=== PATIENT | male | born 1955 | race Hispanic/Latino ===

== ENCOUNTER 2021-08-10 12:20 | Outpatient (CLI) | payer OTHER ==
[2021-08-10 13:50] LABS: Hematocrit 50.1 % (35.5-45.6); Mean Corpuscular HGB Conc 34 % (32-34); Mean Corpuscular Volume 92 fl (84-94); Platelet Count 260 K/mm3 (140-440); Red Blood Count 5.46 M/mm3 (3.65-5.03); Red Cell Distribution Width 13.2 % (13.2-15.2)
[2021-08-10 14:07] LABS: Blood Urea Nitrogen 10 mg/dL (9-20); Calcium 10.2 mg/dL (8.4-10.2); Hemolysis Index 8
[2021-08-10 14:19] LABS: BUN/Creatinine Ratio 14
--- NOTE | 2021-08-11 08:58 | Electrocardiograph Report ---
[facility] Test Date: 2021-08-10 Test Time: 13:44:50 Pat Name: JERONIMO MEADE Department: Room: Gender: M [employer]: JOVON : 1955 Requested By: DEVIN LARA Order Number: [id number] Reading MD: Eusebio Sinha Measurements Intervals [place] Rate: 63 P: 68 KS: 131 QRS: 27 QRSD: 96 T: 72 QT: 396 QTc: 406 Interpretive Statements Sinus rhythm No previous ECG available for comparison Electronically Signed On 08-11-2021 8:58:12 EST by Eusebio Sinha
== END 2021-08-10 12:21 | disposition home or self-care (01) ==
LOC: LAB 12:20
PROVIDERS: ATTEND Surgery
DX: K40.90 Unilateral inguinal hernia, without obstruction or gangrene, not specified as recurrent (principal); F17.210 Nicotine dependence, cigarettes, uncomplicated; Z79.899 Other long term (current) drug therapy
CPT/HCPCS: 36415; 80048; 85027; 93005; 93010

== ENCOUNTER 2021-08-20 11:06 | Day surgery (SDC) | payer MEDICARE, OTHER ==
[~2021-08-20 11:06] MED LIST: ACETAMINOPHEN 500 MG TAB PO SCH; CELECOXIB 200 MG CAP PO NR; GABAPENTIN 300 MG CAP PO NR; LACTATED RINGERS 1,000 ML IV SCH; MIDAZOLAM 2 MG/2 ML INJ IV NR
[2021-08-20] MEDS ORDERED: ceFAZolin/Water 2 GM/20 ML 2 GM/20 ML SYRINGE IV ONE ×2 (12:30→12:31)
[2021-08-20] MEDS ORDERED: HEPARIN 5,000 UNIT/1 ML VIAL SUB-Q NR (12:30)
[2021-08-20] MEDS ORDERED: HEPARIN 5,000 UNIT/1 ML VIAL ONE (12:31)
--- NOTE | 2021-08-20 12:43 | Anesthesia Consultation ---
Anesthesia Consult and Med Hx Date of service: 08/20/21 - Airway Anesthetic Teeth Evaluation: Good ROM Head & Neck: Adequate Mental/Hyoid Distance: Adequate Mallampati Class: Class III Intubation Access Assessment: Possibly Difficult - Pre-Operative Health Status ASA Pre-Surgery Classification: ASA2 Proposed Anesthetic Plan: General - Pulmonary Hx Smoking: Yes (1PPD) Hx Respiratory Symptoms: No - Cardiovascular System Hx Hypertension: No Hx Heart Attack/AMI: No - Central Nervous System CVA: No - Endocrine Hx Renal Disease: No Hx Liver Disease: No Hx Insulin Dependent Diabetes: No Hx Non-Insulin Dependent Diabetes: No Hx Thyroid Disease: No - Other Systems Hx Obesity: No - Additional Comments Anesthesia Medical History Comments: No hx anesthetic complications.
[2021-08-20] MEDS ORDERED: oxyCODONE /ACETAMINOPHEN 5-325MG TAB PO PRN (12:44)
[2021-08-20] MEDS ORDERED: HYDROmorphone 1 MG/1 ML INJ IV PRN (12:44)
--- NOTE | 2021-08-20 12:44 | Anesthesia Day of Surgery ---
Anesthesia Day of Surgery - Day of Surgery Patient Examined: Yes Patient H&P Reviewed: Yes Patient is NPO: Yes
[2021-08-20] MEDS ORDERED: ONDANSETRON 4 MG/2 ML INJ IV PRN (13:00)
[2021-08-20] MEDS ORDERED: HYDROmorphone 1 MG/1 ML INJ ONE (13:31)
[2021-08-20] MEDS ORDERED: propofoL 200 MG/20 ML VIAL IV ONE (13:32)
[2021-08-20] MEDS ORDERED: ROCURONIUM 50 MG/5 ML INJ IV ONE (13:32)
[2021-08-20] MEDS ORDERED: LIDOCAINE MPF (2%) 20 MG/1 ML VIAL 5 ML ONE (13:32)
[2021-08-20] MEDS ORDERED: BUPIVACAINE/PF (0.5%) 5 MG/1 ML 30 ML VIAL INFILTRATI ONE ×2 (13:38→14:15)
[2021-08-20] MEDS ORDERED: LIDOCAINE 1%/EPINEPHRINE 1:100,000 VIAL (20 ML) INFILTRATI ONE ×2 (14:06→14:15)
[2021-08-20] MEDS ORDERED: SODIUM CHLORIDE 0.9% IRR 1,500 ML BOTTLE IR ONE (14:15)
[2021-08-20] MEDS ORDERED: dexAMETHasone 20 MG/5 ML VIAL ONE (14:46)
[2021-08-20] MEDS ORDERED: NEOSTIGMINE 10MG/10 ML INJ MDV ONE (14:46)
[2021-08-20] MEDS ORDERED: ONDANSETRON 4 MG/2 ML INJ ONE (14:46)
[2021-08-20] MEDS ORDERED: GLYCOPYRROLATE 0.4 MG/2 ML INJ ONE (14:47)
[2021-08-20] MEDS ORDERED: KETOROLAC 30 MG/1 ML INJ ONE (14:49)
[2021-08-20] MEDS ORDERED: LACTATED RINGERS 1,000 ML ONE (14:52)
--- NOTE | 2021-08-20 15:47 | Procedure Note ---
Date of procedure: 08/20/21 Pre-op diagnosis: RIH Post-op diagnosis: same (Indirect) Procedure: Open repair of RIH Description of procedure: Pt was placed supine on the OR table. GETA was administered. Lower abdomen was prepped and draped. Skin and SQ tissue in the right suprapubic crease was infiltrated with 9 ml of 0.5% Marcaine. Skin was incised. Hemostasis was obtained with the Bovie. External oblique aponeurosis (EOA) was exposed. The EOA was incised over the inguinal canal. The cord was dissected circumferentially at the level of the pubic tubercle and a Jamal drain passed about the cord. There was no evidence of a direct hernia. Cord was skeletonized and an indirect sac quickly identified. The sac was dissected free of the cord structures and the sac ligated high with a purse string suture of 0-Ethibond. EOA was reapproximated with a running suture of 3-0 Vicryl. Skin was approximated with a running, subcuticular suture of 4-0 Monocryl. Skin glue was applied. Pt tolerated the procedure well. Pt was extubated in the OR and was taken to PACU in stable condition. Anesthesia: GETA Surgeon: DEVIN LARA Estimated blood loss: minimal Pathology: none Condition: stable Disposition: PACU
[2021-08-20 16:23] VITALS: BP 120/61
--- NOTE | 2021-08-20 17:12 | Post Anesthesia Evaluation ---
- Post Anesthesia Evaluation Patient Participated: Yes Airway Patent: Yes Stable Respiratory Function: Yes Nausea/Vomiting: No Temp > 96.8F: Yes Pain Manageable: Yes Adequeate Hydration: Yes Anesthesia Complications: No
== END 2021-08-20 16:45 | disposition home or self-care (01) ==
LOC: OR 11:06
PROVIDERS: ATTEND Surgery
DX: K40.90 Unilateral inguinal hernia, without obstruction or gangrene, not specified as recurrent (principal); M19.90 Unspecified osteoarthritis, unspecified site; F17.210 Nicotine dependence, cigarettes, uncomplicated; Z20.822 Contact with and (suspected) exposure to COVID-19; Z79.899 Other long term (current) drug therapy; Z94.9 Transplanted organ and tissue status, unspecified; Z72.89 Other problems related to lifestyle; Z98.890 Other specified postprocedural states
CPT/HCPCS: 49505; J0690; J1100; J1170; J1644; J1815; J1885; J2250; J2405; J2704; J2710; J3490; J7120; U0003